=== PATIENT | male | born 1995 | race Caucasian/White ===

== ENCOUNTER 2016-04-16 06:46 | Emergency (ER) | payer OTHER ==
[2016-04-16 07:01] VITALS: PULSE 75; TEMP 98.1; BMI 26.5
[2016-04-16 07:40] LABS: URINE APPEARANCE CLEAR; URINE BILIRUBIN NEGATIVE (NEGATIVE); URINE COLOR LTYELLOW; URINE GLUCOSE (UA) NEGATIVE (NEGATIVE); URINE KETONE NEGATIVE (NEGATIVE); URINE LEUK ESTERASE NEGATIVE (NEGATIVE); URINE NITRITE NEGATIVE (NEGATIVE); URINE PROTEIN NEGATIVE (NEGATIVE); URINE UROBILINOGEN NEGATIVE E.U./dl (0.2-1.0)
[2016-04-16 07:44] LABS: URINE BLOOD 2+ (NEGATIVE)
--- NOTE | 2016-04-16 07:46 | PDOC ---
History of Present Illness - General Chief Complaint: Urinary Problem Stated Complaint: CAN NOT STOP URINATING Time Seen by Provider: 04/16/16 07:18 History Source: Patient Exam Limitations: No Limitations - History of Present Illness Travel History: No Initial Comments: 04/16/16 07:48 20-year-old male who presents to the ED with complaints of mild dysuria and frequency over the past 3 days associated with tingling to the urethra since yesterday. As the patient has had no fever, chills, abdominal pain, skin itching , or tightfitting clothes. Patient history of MR and as per mother and patient he has never been sexually active and denies masturbation. Patient injury to the area or skin discoloration. Timing/Duration: reports: intermittent Quality: reports: mild Abdominal Pain Onset Location: reports: other (penile) Aggravating Factors: improves with: Voiding Alleviating Factors: improves with: Rest Past History - Past Medical History Allergies/Adverse Reactions: Allergies Allergy/AdvReac Type Severity Reaction Status Date / Time No Known Allergies Allergy Verified 04/16/16 06:56 Home Medications: Ambulatory Orders No Home Medications 0 dose .ROUTE UTDICT 06/21/13 Asthma: Yes - Immunization History Immunization Up to Date: Yes - Psycho/Social/Smoking Cessation Hx Anxiety: Yes Suicidal Ideation: No Smoking Status: No Smoking History: Never smoked Number of Cigarettes Smoked Daily: 0 Patient Lives Alone: No Lives with/in: parents Review of Systems - Review of Systems Able to Perform ROS?: Yes Constitutional: No: Symptoms Reported HEENTM: No: Symptoms Reported Respiratory: No: Symptoms reported Cardiac (ROS): No: Symptoms Reported ABD/GI: No: Symptoms Reported : Yes: Dysuria, Frequency. No: Discharge Musculoskeletal: No: Symptoms Reported Integumentary: No: Symptoms Reported Neurological: No: Symptoms reported Endocrine: No: Symptoms Reported Hematologic/Lymphatic: No: Symptoms Reported *Physical Exam - Vital Signs Last Vital Signs Temp Pulse Resp BP Pulse Ox 98.1 F 75 18 111/96 100 04/16/16 06:57 04/16/16 06:57 04/16/16 06:57 04/16/16 06:57 04/16/16 06:57 - Physical Exam General Appearance: Yes: Nourished, Appropriately Dressed. No: Apparent Distress HEENT: positive: EOMI, BRICE. negative: Pale Conjunctivae Neck: positive: Supple Respiratory/Chest: positive: Lungs Clear, Normal Breath Sounds. negative: Respiratory Distress, Accessory Muscle Use Cardiovascular: positive: Regular Rhythm, Regular Rate. negative: Murmur Gastrointestinal/Abdominal: positive: Soft. negative: Tenderness Male Genitalia: positive: normal genitalia, normal prostate. negative: discharge, epididymus tender, hernia Musculoskeletal: negative: CVA Tenderness Integumentary: positive: Normal Color, Warm, Moist. negative: Erythema, Rash, Ecchymosis Neurologic: positive: Normal Mood/Affect, Motor Strength 5/5 (ambulatory) Medical Decision Making - Medical Decision Making 04/16/16 08:06 Patient here with urinary frequency and dysuria associated with urethral tingling causing him to touch his penis frequently. Patient states has urinated 4 times since being here in the ER. Patient denies sexual activity or high risk behavior. Patient has no indications for treatment for STDs although urine was sent for urinalysis urine culture and STD testing. Patient on exam had no acute clinical findings. 04/16/16 08:38 Laboratory Tests 04/16/16 04/16/16 07:00 07:00 Urine pH 5.0 Ur Specific Midnight 1.017 Urine Protein Negative Urine Glucose (UA) Negative Urine Ketones Negative Urine Blood 2+ H Ur Leukocyte Esterase Negative Urine RBC 2 Urine WBC <1 T. vaginalis (ELIZABETH) Pending Discussed with mother patient to wait for urine culture and testing. Mother states patient will be comfortable and is requesting an antibiotic just in case. I will prescribe Levaquin if symptoms continue. patient also will be given referral to urologist. *DC/Admit/Observation/Transfer Diagnosis at time of Disposition: Urethral irritation, Increased frequency of urination, Dysuria - Discharge Dispostion Disposition: HOME Condition at time of disposition: Good - Referrals Referrals: Dasia Cabrera MD [Primary Care Provider] - Johan Dumont MD [Staff Physician] - - Patient Instructions Printed Discharge Instructions: DI for Dysuria -- Adult Additional Instructions: I have prescribed an antibiotic that you may fill if symptoms continue by tomorrow. Please follow up with referred urologist.
[2016-04-16 07:49] LABS: URINE MUCUS RARE; URINE RBC 2 /hpf (0-3); URINE WBC <1 /hpf (3-5)
[2016-04-16 08:52] VITALS: BP 115/74
[2016-04-22 14:24] LABS: CHLAM.TRACHOMATIS NAA Negative (Negative); GONOCOCCUS NAA Negative (Negative); TRICH VAG NAA Negative (Negative)
== END 2016-04-16 08:52 | disposition home or self-care (01) ==
LOC: JER 06:46
DX: R30.0 Dysuria (principal); N34.2 Other urethritis; F79 Unspecified intellectual disabilities
CPT/HCPCS: 36415; 81003; 81015; 87086; 87491; 87591; 87661; 99282-25

== ENCOUNTER 2016-05-10 18:34 | Emergency (ER) | payer OTHER ==
[2016-05-10 18:54] VITALS: BP 109/68; PULSE 78; TEMP 98; BMI 23.8
[2016-05-10] MEDS ORDERED: diphenhydrAMINE HCL 25 MG CAPSULE (FP) PO ONE ×3 (19:42→19:45)
--- NOTE | 2016-05-10 19:51 | PDOC ---
History of Present Illness - General Chief Complaint: Rash Stated Complaint: ALLERGIC REACTION Time Seen by Provider: 05/10/16 19:35 History Source: Patient - History of Present Illness Timing/Duration: reports: this morning Location: reports: extremities, torso Past History - Past Medical History Allergies/Adverse Reactions: Allergies Allergy/AdvReac Type Severity Reaction Status Date / Time No Known Allergies Allergy Verified 05/10/16 18:54 Home Medications: Ambulatory Orders No Home Medications 0 dose .ROUTE UTDICT 06/21/13 Levofloxacin [Levaquin] 500 mg PO DAILY #7 tablet 04/16/16 Diphenhydramine HCl [Benadryl -] 25 mg PO Q6H #28 capsule 05/10/16 Asthma: Yes - Immunization History Immunization Up to Date: Yes - Psycho/Social/Smoking Cessation Hx Anxiety: No Suicidal Ideation: No Smoking Status: No Smoking History: Never smoked Number of Cigarettes Smoked Daily: 0 Hx Alcohol Use: No Drug/Substance Use Hx: No Substance Use Type: None Review of Systems - Review of Systems Constitutional: No: Chills, Fever HEENTM: No: Ear Pain, Throat Pain Respiratory: No: Cough ABD/GI: No: Diarrhea, Nausea, Vomiting Integumentary: Yes: Pruritus, Rash *Physical Exam - Vital Signs Last Vital Signs Temp Pulse Resp BP Pulse Ox 98.0 F 78 20 109/68 98 05/10/16 18:50 05/10/16 18:50 05/10/16 18:50 05/10/16 18:50 05/10/16 18:50 - Physical Exam General Appearance: Yes: Appropriately Dressed. No: Apparent Distress HEENT: positive: Normal Voice, Other (no tongue swelling) Neck: positive: Supple Respiratory/Chest: positive: Lungs Clear, Normal Breath Sounds. negative: Respiratory Distress, Stridor Extremity: positive: Other Integumentary: positive: Dry, Warm, Rash (diffuse, symmetric erythematous macules 2-5 mm in size to trunk and exts) Neurologic: positive: Fully Oriented, Alert, Normal Mood/Affect Medical Decision Making - Medical Decision Making 05/10/16 19:45 20-year-old male, history of mild MR,brought in by mother for pruritic rash that started this am. No uri sxs, f/c. Denies any tongue swelling, shortness of breath or voice changes. Mother states patient has no known drug or food allergies but yesterday did have a bladder CT for dysuria, hematuria, and states CAT scan was done with IV contrast which patient has never had before. Concerned that this could be causing patient's symptoms. Pt well-appearing and stable with clear chest lungs and diffuse, erythematous, macular rash to trunk and extremities, c/w morbilliform rash, no hives. Unclear if related to recent IV dye and unlikely measles as pt's vaccinations UTD and no sick contacts. Will dc w/ benadryl w/ return precautions given to parent *DC/Admit/Observation/Transfer Diagnosis at time of Disposition: Rash and nonspecific skin eruption - Discharge Dispostion Disposition: HOME Condition at time of disposition: Good - Prescriptions Prescriptions: Diphenhydramine HCl [Benadryl -] 25 mg PO Q6H #28 capsule - Referrals Referrals: Dasia Cabrera MD [Primary Care Provider] - Haleigh Richard MD [Staff Physician] - - Patient Instructions Printed Discharge Instructions: DI for Rash Additional Instructions: Take benadryl every 6 hrs as neded. if symptoms persists, follow with Dr Richard of dermatology Return to ED for worsening of symptoms
== END 2016-05-10 19:46 | disposition home or self-care (01) ==
LOC: JERFT 18:34
DX: R21 Rash and other nonspecific skin eruption (principal); F70 Mild intellectual disabilities
CPT/HCPCS: 99281-25

== ENCOUNTER 2018-06-19 14:07 | Emergency (ER) | payer OTHER ==
[2018-06-19 14:19] VITALS: BP 101/67; PULSE 79; TEMP 98.2; BMI 23.8
--- NOTE | 2018-06-19 15:46 | PDOC ---
History of Present Illness - General Chief Complaint: Chest Pain Stated Complaint: CHEST PAIN Time Seen by Provider: 06/19/18 14:37 History Source: Patient, Parent(s) (mother) Exam Limitations: No Limitations - History of Present Illness Initial Comments: 06/19/18 15:46 22 y/o male presents to the ED with c/o rustam ant CP worsened with deep breathing worsening over the past 3 days. Pt denies hx of PE, calf pain, recent travel, sx , or smoking hx. Mother states in 2011 was dx'd with pericarditis and states pt has similar presentation to last episode. Pt denies hx of Lupus or autoimmune d/ o but does have autism. Timing/Duration: getting worse (3 days) Severity: moderate Associated Symptoms: reports: chest pain, shortness of breath Past History - Travel Traveled outside of the country in the last 30 days: No Close contact w/someone who was outside of country & ill: No - Past Medical History Allergies/Adverse Reactions: Allergies Allergy/AdvReac Type Severity Reaction Status Date / Time No Known Allergies Allergy Verified 06/19/18 14:19 Home Medications: Ambulatory Orders Levofloxacin [Levaquin] 500 mg PO DAILY #7 tablet 04/16/16 Diphenhydramine HCl [Benadryl -] 25 mg PO Q6H #28 capsule 05/10/16 Sennosides/Docusate Sodium [Stool Softener-Laxative Tablet] 1 tab PO ASDIR 07/22 Asthma: Yes Cardiac Disorders: Yes (pericarditis 2011) COPD: No Disorders: Yes (bladder issues) Liver Disease: Yes (CT SCAN REVEALED LIVER LESIONS) Other medical history: chronic blood in his urine - Immunization History Immunization Up to Date: Yes - Suicide/Smoking/Psychosocial Hx Smoking Status: No Smoking History: Never smoked Number of Cigarettes Smoked Daily: 0 Hx Alcohol Use: No Drug/Substance Use Hx: No Substance Use Type: None Patient Lives Alone: No Lives with/in: parents Review of Systems - Review of Systems Able to Perform ROS?: Yes Constitutional: No: Symptoms Reported HEENTM: No: Symptoms Reported Respiratory: Yes: Shortness of Breath. No: Cough Cardiac (ROS): Yes: Chest Tightness ABD/GI: No: Symptoms Reported : No: Symptoms Reported Musculoskeletal: Yes: Muscle Pain (rustam ant lower chest aching pain with tightness) Integumentary: No: Symptoms Reported Neurological: No: Symptoms reported Hematologic/Lymphatic: No: Symptoms Reported *Physical Exam - Vital Signs Last Vital Signs Temp Pulse Resp BP Pulse Ox 98.2 F 79 18 101/67 99 06/19/18 14:12 06/19/18 14:12 06/19/18 14:12 06/19/18 14:12 06/19/18 14:12 - Physical Exam General Appearance: Yes: Nourished, Appropriately Dressed. No: Apparent Distress HEENT: positive: EOMI, BRICE, TMs Normal, Pharynx Normal. negative: Pale Conjunctivae Neck: positive: Normal Thyroid, Supple Respiratory/Chest: positive: Chest Tender (bilateral lower ibs lateral of sternum at 4-9th ics), Lungs Clear, Normal Breath Sounds. negative: Respiratory Distress, Accessory Muscle Use Cardiovascular: positive: Regular Rhythm, Regular Rate. negative: Murmur Gastrointestinal/Abdominal: positive: Soft. negative: Tenderness Musculoskeletal: negative: CVA Tenderness Extremity: positive: Normal Capillary Refill. negative: Pedal Edema Integumentary: positive: Normal Color, Warm, Moist Neurologic: positive: Motor Strength 5/5 (ambulatory) Moderate Sedation - Procedure Monitoring Vital Signs: Procedure Monitoring Vital Signs Temperature 98.2 F 06/19/18 14:12 Pulse Rate 79 06/19/18 14:12 Respiratory Rate 18 06/19/18 14:12 Blood Pressure 101/67 06/19/18 14:12 O2 Sat by Pulse Oximetry (%) 99 06/19/18 14:12 ED Treatment Course - LABORATORY CBC & Chemistry Diagram: 06/19/18 16:10 06/19/18 16:10 - RADIOLOGY Radiology Studies Ordered: Category Date Time Status CHEST PA & LAT [RAD] Stat Radiology 06/19/18 15:18 Ordered Medical Decision Making - Medical Decision Making 06/19/18 16:00 CC: chest tightness w/ sob x 3 days, hx pericarditis, 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 Exam: reproducible ant cp with not inability to take a deep breath secondary to discomfort Plan: labs, ekg, cxr ordered 06/19/18 17:38 Laboratory Tests 06/19/18 06/19/18 06/19/18 16:10 16:10 16:10 WBC 7.0 Hgb 16.0 Hct 45.4 Plt Count 206 MPV 8.2 Absolute Neuts (auto) 4.4 Neutrophils % 63.0 Monocytes % (Manual) 14 H Eosinophils % 1.1 D Platelet Estimate Adequate ESR D-Dimer < 215 Sodium 141 Potassium 4.0 Chloride 105 Carbon Dioxide 31 Anion Gap 5 L BUN 17 Creatinine 1.0 Random Glucose 103 Calcium 9.2 Total Bilirubin 0.3 AST 20 ALT 38 Alkaline Phosphatase 72 Creatine Kinase 86 Troponin I < 0.02 C-Reactive Protein Total Protein 7.4 Albumin 4.1 06/19/18 06/19/18 16:10 16:10 WBC Hgb Hct Plt Count MPV Absolute Neuts (auto) Neutrophils % Monocytes % (Manual) Eosinophils % Platelet Estimate ESR Pending D-Dimer Sodium Potassium Chloride Carbon Dioxide Anion Gap BUN Creatinine Random Glucose Calcium Total Bilirubin AST ALT Alkaline Phosphatase Creatine Kinase Troponin I C-Reactive Protein < 0.3 Total Protein Albumin 06/19/18 17:40 CXR shows no acute findings 06/19/18 17:59 Laboratory Tests 06/19/18 16:10 ESR 1 Pt states chest tightness have resolved since initial exam. discharge carmen w/ cardiology consult. *DC/Admit/Observation/Transfer Diagnosis at time of Disposition: Acute chest wall pain - Discharge Dispostion Disposition: HOME Condition at time of disposition: Improved - Referrals Referrals: Piotr Gomez MD [Staff Physician] - Harinder Saldana MD [Staff Physician] - - Patient Instructions Printed Discharge Instructions: DI for Atypical Chest Pain Additional Instructions: At this time I recommended following up with the referred nail making machine tender and taking either MOTRIN 400MG OR Tylenol 650mg for discomfort. If symptoms worsen, please return to the ED - Post Discharge Activity
[2018-06-19 16:26] LABS: BASO % 0.3 % (0-2.0); EOS % 1.1 % (0-4.5); HEMATOCRIT 45.4 % (35.4-49); LYMPH % 26.7 % (8-40); MCH 30.2 pg (25.7-33.7); MCHC 35.1 g/dl (32.0-35.9); MEAN CELL VOLUME 85.9 fl (80-96); MEAN PLT VOLUME 8.2 fl (7.5-11.1); MONO % 8.9 % (3.8-10.2); PLATELET COUNT 206 K/MM3 (134-434); RBC 5.29 M/mm3 (4.00-5.60); RDW 13.1 % (11.9-15.9)
[2018-06-19 17:01] LABS: ALBUMIN 4.1 g/dl (3.4-5.0); ALK PHOS 72 U/L (45-117); ANION GAP 5 MMOL/L (8-16); BILIRUBIN,TOTAL 0.3 mg/dL (0.2-1); BLOOD UREA NITROGEN 17 mg/dL (7-18); CALCIUM 9.2 mg/dL (8.5-10.1); CHLORIDE 105 mmol/L (98-107); CO2 31 mmol/L (21-32); GLUCOSE,RANDOM 103 mg/dL (74-106); SGOT/AST 20 U/L (15-37); SGPT/ALT 38 U/L (13-61); SODIUM 141 mmol/L (136-145); TOT PROT 7.4 g/dl (6.4-8.2)
[2018-06-19 17:29] LABS: PLATELET ESTIMATE ADEQUATE
--- NOTE | 2018-06-20 10:40 | EKG ---
Test Reason : Blood Pressure : / mmHG Vent. Rate : 069 BPM Atrial Rate : 069 BPM P-R Int : 120 ms QRS Dur : 088 ms QT Int : 364 ms P-R-T Axes : 040 062 008 degrees QTc Int : 390 ms NORMAL SINUS RHYTHM NONSPECIFIC ST ABNORMALITY ABNORMAL ECG WHEN COMPARED WITH ECG OF 21-JUN-2013 20:26, NO SIGNIFICANT CHANGE WAS FOUND Confirmed by INÉS WILLIAMSON MD ([id number]) on 06/20/2018 10:40:23 AM Referred By: Confirmed By:INÉS WILLIAMSON MD
== END 2018-06-19 18:16 | disposition home or self-care (01) ==
LOC: JER 14:07
DX: R07.89 Other chest pain (principal); J45.909 Unspecified asthma, uncomplicated; R31.9 Hematuria, unspecified; K76.89 Other specified diseases of liver
CPT/HCPCS: 36415; 71046-TC-FY; 80053; 82550; 84484; 85025; 85379; 85651; 86140; 93005; 93010; 99281-25

== ENCOUNTER 2018-08-24 04:43 | Day surgery (SDC) | payer OTHER ==
[2018-08-23 14:10] VITALS: BMI 23.8
[2018-08-24] MEDS ORDERED: LIDOCAINE HCL/PF 2% SDV 5ML VIAL ONE (11:29)
[2018-08-24] MEDS ORDERED: PROPOFOL 20 ML ONE ×2 (11:29)
[2018-08-24] MEDS ORDERED: ceFAZolin SODIUM 1 GM VIAL IVPB ONE (11:39)
--- NOTE | 2018-08-24 12:02 | OP ---
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
[2018-08-24] MEDS ORDERED: KETOROLAC TROMETHAMINE 30 MG/1 ML VIAL ONE (12:03)
[2018-08-24] MEDS ORDERED: DEXAMETHASONE SOD PHOSPHATE 4 MG/1 ML VIAL ONE (12:04)
[2018-08-24] MEDS ORDERED: ceFAZolin SODIUM 1 GM VIAL ONE (12:04)
[2018-08-24] MEDS ORDERED: oxyCODONE HCL 5 MG TABLET PO PRN (12:10)
[2018-08-24] MEDS ORDERED: ONDANSETRON 4 MG/2 ML VIAL IVPUSH PRN (12:10)
[2018-08-24] MEDS ORDERED: PROMETHAZINE HCL 25 MG/1 ML VIAL IVPUSH PRN (12:10)
--- NOTE | 2018-08-24 13:10 | OP ---
DATE OF OPERATION: 08/24/2018 SURGEON: Keisha Hernandez MD ANESTHESIA: General. PREOPERATIVE DIAGNOSIS: Hematuria. POSTOPERATIVE DIAGNOSIS: Hematuria with hemorrhagic cystitis and meatal stenosis. PROCEDURE: Cystoscopy and urethral meatal dilatation. FINDINGS: Severe stricture of the urethral meatus noted. The rest of the urethra was normal. Prostatic urethra was inflamed. The bladder showed severe inflammatory changes. Both ureteral orifices were normally located with clear efflux. PROCEDURE: With the patient in lithotomy position under anesthesia was prepped and draped in the usual manner. Meatus was dilated first then cystoscopy was performed and the findings are noted above. Ancef was given. The patient tolerated the procedure well and left the operating room in satisfactory condition. Sherry HASSAN/[id number]
[2018-08-24] MEDS ORDERED: oxyCODONE HCL 5 MG TABLET ONE (13:18)
[2018-08-24] MEDS ORDERED: PHENAZOPYRIDINE HCL 100 MG TABLET (FP) PO ONE (13:31)
[2018-08-24 14:11] VITALS: TEMP 98
[2018-08-24 17:37] VITALS: BP 118/70; PULSE 86
== END 2018-08-24 16:30 | disposition home or self-care (01) ==
LOC: JASU-SURG 04:43
PROVIDERS: ATTEND Urology
PROC: 0T7D8ZZ Dilation of Urethra, Via Natural or Artificial Opening Endoscopic (ICD-10-PCS; principal; 2018-08-24 11:00)
DX: N30.81 Other cystitis with hematuria (principal); N35.911 Unspecified urethral stricture, male, meatal
CPT/HCPCS: 94760